=== PATIENT | female | born 1980 | race Asian ===

== ENCOUNTER 2017-01-10 10:08 | Inpatient (IN) ==
[2017-01-10 11:07] LABS: URINE SOURCE VOIDED
[2017-01-10 11:13] LABS: BILIRUBIN URINE NEGATIVE (NEGATIVE); BLOOD URINE 4+ (NEGATIVE); CLARITY CLEAR (CLEAR); COLOR YELLOW; GLUCOSE URINE NEGATIVE (NEGATIVE); LEUKOCYTES URINE TRACE (NEGATIVE); NITRITE URINE NEGATIVE (NEGATIVE); PH URINE 6.5; PROTEIN URINE TRACE mg/dL (NEGATIVE); UROBILINOGEN URINE NORMAL
[2017-01-10] MEDS ORDERED: LR 500 ML IV ONE (12:08)
[2017-01-10] MEDS ORDERED: PEPCID IV PRN (12:08)
[2017-01-10] MEDS ORDERED: REGLAN PO ONE (12:08)
[2017-01-10] MEDS ORDERED: TYLENOL PO PRN (12:08)
[2017-01-10] MEDS ORDERED: PEPCID PO PRN (12:08)
[2017-01-10] MEDS ORDERED: STADOL IV PRN (12:08)
[2017-01-10] MEDS ORDERED: PITOCIN 30 UNITS/LR 30 UNITS/500 ML IV.SOLN IV SCH (12:08)
[2017-01-10] MEDS ORDERED: ZOFRAN IV PRN (12:08)
[2017-01-10] MEDS ORDERED: KEFZOL 1 GM/D5W 1 GM/50 ML IVPB IV PRN (12:08)
[2017-01-10] MEDS ORDERED: PEPCID PO ONE (12:08)
[2017-01-10] MEDS ORDERED: SODIUM CHLORIDE 0.9% INJ SCH (12:15)
[2017-01-10] MEDS: LR 1,000 ML IV SCH ×3 (12:30→14:50)
[2017-01-10 13:02] LABS: MANUAL DIFF NEEDED? NO
[2017-01-10 13:04] LABS: HEMATOCRIT 34.2 % (37.0-47.0); HEMOGLOBIN 11.5 g/dL (12.0-16.0); MCHC 33.6 g/dL (33-37); MCV 83.2 FL (81-99); PLT 209 X1000 (130-400); RBC 4.11 XMIL (4.2-5.4)
[2017-01-10 13:05] LABS: BASO% 0.1 % (0.0-0.8); EOS# 0.03 X1000 (0.0-0.7); EOS% 0.3 % (0.0-10.0); IMM GRAN# 0.05 X1000 (0.0-0.04); IMM GRAN% 0.5 % (0.0-0.5); LYMPH# 1.29 X1000 (1.2-3.4); LYMPH% 11.7 % (20.5-51.1); MONO# 0.79 X1000 (0.11-0.59); MONO% 7.1 % (1.7-9.3); MPV 12.1 FL (7.4-10.4); NEUT% 80.3 % (42.2-75.2)
[2017-01-10] MEDS ORDERED: FENTANYL-BUPIV-NS 2 MCG-0.1% 200 ML EPIDURAL PRN (13:28)
[2017-01-10] MEDS ORDERED: XYLOCAINE-MPF 1% INJ ONE ×2 (13:30→16:30)
[2017-01-10] MEDS ORDERED: MINERAL OIL ONE (16:29)
[2017-01-10] MEDS ORDERED: BENADRYL PO PRN (19:18)
[2017-01-10] MEDS ORDERED: BENADRYL IV PRN (19:18)
[2017-01-10] MEDS ORDERED: BOOSTRIX VACCINE IM ONE (19:18)
[2017-01-10] MEDS ORDERED: CYTOTEC PO PRN (19:18)
[2017-01-10] MEDS ORDERED: AMBIEN PO PRN (19:18)
[2017-01-10] MEDS ORDERED: XYLOCAINE-MPF 1% INJ PRN (19:18)
[2017-01-10] MEDS ORDERED: HYDROXYZINE PO PRN (19:18)
[2017-01-10] MEDS ORDERED: PITOCIN IM PRN (19:18)
[2017-01-10] MEDS ORDERED: PERI MEDS (DERMOPLAST/NUPERCAINAL/TUCKS) MISC PRN (19:18)
[2017-01-10] MEDS ORDERED: NORCO-10 PO PRN (19:18)
[2017-01-10] MEDS ORDERED: PERCOCET-10 PO PRN (19:18)
[2017-01-10] MEDS ORDERED: MINERAL OIL PO PRN (19:18)
[2017-01-10] MEDS ORDERED: HYDROXYZINE IM PRN (19:18)
[2017-01-10] MEDS ORDERED: PITOCIN 30 UNITS/LR 30 UNITS/500 ML IV.SOLN IV ONE (19:18)
[2017-01-10] MEDS ORDERED: PITOCIN 20 UNITS/LR 20 UNITS/1,000 ML IV.SOLN IV SCH (19:18)
[2017-01-10] MEDS ORDERED: M-M-R II VACCINE SUBQ ONE (19:18)
[2017-01-10] MEDS ORDERED: PERCOCET-5 PO PRN (19:18)
[2017-01-10] MEDS ORDERED: NORCO-5 PO PRN (19:18)
--- NOTE | 2017-01-10 20:45 | OPERATIVE NOTE ---
PROCEDURE DATE: 01/10/2017 DELIVERY PHYSICIAN: Dr. Greco. TYPE OF DELIVERY: Vaginal delivery with outlet forceps. ANESTHESIA: Epidural. FINDINGS: At 1850 a 7 pound 13 ounce female was delivered in occiput anterior presentation with outlet forceps. Apgars not been assigned at time of this dictation. SUMMARY: Patient Sharmaine Brandon is a 36-year-old 3, para 1-0-1-1 who has had care office. She is 40 and 6/7 weeks gestation. Her blood type is O positive, rubella equivocal, hepatitis B surface antigen, HIV and group B strep is negative. She presented to labor and delivery today reporting spontaneous rupture membranes that occurred approximately 2:30 this morning. She was essentially dilated the time of admission. She was admitted. Rupture membranes was confirmed with the ROM plus test, IV Pitocin was begun, an epidural placed for labor pain management. She progressed to labor without signs of stress or dystocia became complete. After approximately an hour of pushing she was exhausted and after discussing options decision was made to proceed with outlet forceps delivery. We attempted to place a vacuum forceps but we never could get a seal due to the large amount of hair on the 's head. We therefore used Horacio Annita forceps, they were applied at a +1 station. With gentle traction the was easily delivered. Once head was delivered the forceps removed, with 1 more push remainder of the head was delivered, the shoulders and body were delivered without complications. Oropharynx was bulb suctioned. The cord was clamped, cut, was handed nurses further care and evaluation. Cord blood was obtained. Placenta spontaneously delivered and was intact. There was a midline tear and a left sidewall laceration. These were easily repaired in layers using 2-0 Vicryl suture. Blood loss approximately 200 mL. There no complications. The patient remained in the LDR recovering without difficulty. cc: Mook Greco MD
[2017-01-11] MEDS: PERICOLACE PO SCH ×2 (01:14→20:28)
[2017-01-11 06:33] LABS: HEMATOCRIT 30.5 % (37.0-47.0); HEMOGLOBIN 10.1 g/dL (12.0-16.0); MCH 27.8 PG (27-31); MCHC 33.1 g/dL (33-37); MPV 12.2 FL (7.4-10.4); RBC 3.63 XMIL (4.2-5.4)
[2017-01-11] MEDS: FERROUS SULFATE PO SCH (08:02)
[2017-01-11] MEDS: MOTRIN PO PRN ×2 (08:02→22:35)
[2017-01-11] MEDS: PRECARE PO SCH (08:02)
[2017-01-11] MEDS ORDERED: FERROUS FUMARATE PO SCH (09:00)
[2017-01-11] MEDS ORDERED: [UNRECOGNIZED DRUG - OTHER] PO SCH (09:00)
[2017-01-11] MEDS ORDERED: PNV CMB PO SCH (09:00)
[2017-01-12 04:13] VITALS: BP 98/50
[2017-01-12] MEDS: PRECARE PO SCH (08:17)
[2017-01-12] MEDS: FERROUS SULFATE PO SCH (08:17)
== END 2017-01-12 15:40 | disposition home or self-care (01) ==
LOC: P.OPLD 10:08 → P.LD 10:23
PROVIDERS: ADMIT Obstetrics & Gynecology; ATTEND Obstetrics & Gynecology